=== PATIENT | female | born 1980 | race Caucasian/White ===

== ENCOUNTER 2023-09-02 15:43 | Emergency (ER) | payer BC ==
--- NOTE | 2023-09-02 15:50 | ED Physician Documentation ---
PD HPI CHEST PAIN - Stated complaint Stated Complaint: CP - History obtained from History obtained from: Patient - Additional information Additional information: 43-year-old woman with history of hypercholesterolemia and Kenneth's thyroidi tis but no history of coronary disease. Her mom developed coronary disease in her late 60s. She also notes that she had a great aunt with coronary disease in her 40s. She was at the dentist today just getting an exam. No fillings or injections, and developed substernal chest pressure that was nonradiating. It lasted about an hour and is gone. She was mildly short of breath with it. She has a similar shorter episode a few days ago. Neither were exertional. She feels fine now. No recent travel, leg pain or swelling, nor back pain. Prehospital EKG was unremarkable. PD PAST MEDICAL HISTORY - Present Medications Home Medications: Ambulatory Orders Medication Instructions Recorded Confirmed Levothyroxine [Synthroid] 75 mcg PO QDAC 09/02/23 09/02/23 - Allergies Allergies/Adverse Reactions: Allergies Allergy/AdvReac Type Severity Reaction Status Date / Time levofloxacin [From Levaquin] Allergy Hives Verified 09/02/23 15:48 Penicillins Allergy Hives Verified 09/02/23 15:48 Sulfa (Sulfonamide Allergy Headache Verified 09/02/23 15:48 Antibiotics) PD ED PE NORMAL - Vitals Vital signs reviewed: Yes - General General: Alert and oriented X 3, No acute distress - Neck Neck: Supple, no meningeal sign - Cardiac Cardiac: RRR, No murmur - Respiratory Respiratory: No respiratory distress, Clear bilaterally - Abdomen Abdomen: Non tender - Extremities Extremities: No edema, No calf tenderness / cord - Neuro Neuro: Alert and oriented X 3 Results - Vitals Vitals: Vital Signs - 24 hr 09/02/23 15:48 Temperature 36.8 C Heart Rate 83 Respiratory 16 Rate Blood Pressure 107/56 L O2 Saturation 100 Oxygen O2 Source Room air - EKG (time done) 1425 (from clinic) EKG releavant findings:: EKG personally interpreted by author of this note. Relevant findings are: Rate: Rate (enter#) (74) Rhythm: NSR [place]: Normal Intervals: Normal UT QRS: Normal Ischemia: Normal ST segments. No: ST elevation c/w ischemia, ST depression - Labs Labs: Laboratory Tests 09/02/23 09/02/23 16:00 16:06 Troponin I High Sens < 2.3 L Urine HCG, Qual NEGATIVE PD Medical Decision Making - ED course ED course: Heart score 2 points, PERC negative. Nothing in the history or physical to suggest dissection. Pain is resolved. Departure - Departure Disposition: 01 Home, Self Care Clinical Impression: Chest pain Qualifiers: Chest pain type: chest pain on breathing Qualified Code(s): R07.1 - Chest pain on breathing; R07.81 - Pleurodynia Condition: Good Record reviewed to determine appropriate education?: Yes Instructions: ED Chest Pain Atypical Unkn Cause Comments: At this point there is no evidence that your chest pain episodes are related to a severe worrisome cause. Definitely follow-up with your primary care physician though to discuss. Return for new or worsening symptoms. Both troponin testing and chest x-ray were negative and your EKG was unremarkable.
[2023-09-02 16:10] LABS: HCG UR QUAL NEGATIVE
[2023-09-02 16:19] VITALS: O2SAT 100
--- NOTE | 2023-09-02 16:42 | XRAY Report ---
PROCEDURE: Chest 1V INDICATIONS: cp TECHNIQUE: One view of the chest was acquired. COMPARISON: None. FINDINGS: Surgical changes and devices: None. Lungs and pleura: No pleural effusions or pneumothorax. Lungs are clear. Mediastinum: Mediastinal contours appear normal. Heart size is normal. Bones and chest wall: No suspicious bony lesions. Overlying soft tissues appear unremarkable. IMPRESSION: No acute cardiopulmonary process. Reviewed by: Kyleigh Patterson MD on 09/02/2023 4:40 PM PDT Approved by: Kyleigh Patterson MD on 09/02/2023 4:40 PM PDT Station ID: [id number]
[2023-09-02 16:49] VITALS: BP 104/52
== END 2023-09-02 16:44 | disposition home or self-care (01) ==
LOC: ED 15:43
DX: R07.1 Chest pain on breathing (principal); E78.00 Pure hypercholesterolemia, unspecified; E06.3 Autoimmune thyroiditis; Z79.899 Other long term (current) drug therapy
CPT/HCPCS: 36415; 81025; 84484; 99284